=== PATIENT | male | born 1965 | race Hispanic/Latino ===

== ENCOUNTER 2017-06-13 15:23 | Inpatient (IN) | payer MEDICARE, OTHER ==
--- NOTE | 2017-06-13 18:21 | RAD ---
HISTORY: tachycardia, psych COMPARISON: No prior. FINDINGS: LUNGS: The lungs are well inflated and clear. PLEURA: No significant pleural effusion identified, no pneumothorax apparent. CARDIOVASCULAR: Normal. OSSEOUS STRUCTURES: No significant abnormalities. VISUALIZED UPPER ABDOMEN: Normal. OTHER FINDINGS: None. IMPRESSION: No active pulmonary disease.
--- NOTE | 2017-06-13 18:22 | ED PDOC ---
Arrival/HPI - General Historian: Patient <Madelin Pena PA-C - Last Filed: 06/13/17 18:43> <Marco A Tejeda - Last Filed: 06/13/17 22:23> <TilaTerri - Last Filed: 06/15/17 07:42> - General Chief Complaint: Psychiatric Evaluation Time Seen by Provider: 06/13/17 16:40 - History of Present Illness Narrative History of Present Illness (Text): 06/13/17 18:19 Patient w/ past medical history of schizophrenia, presents for psychiatric evaluation, patient states that he does not know why he was in the hospital, states that he had an argument with his brother and his brother called the doctor of dental surgery on him and brought him to the emergency room to be evaluated. Otherwise the patient has no other complaints. Other psychiatric symptoms: (-) hallucinations , (-) suicidal ideation, (-) homicidal ideation. Otherwise: (-) trauma, (-) fever, (-) headache, (-) cough, (-) URI, (-) CP, (-) dyspnea, (-) vomiting, (-) abdominal pain, (-) diarrhea, (-) urinary symptoms, (-) leg pain / swelling. ( Madelin Pena PA-C) Past Medical History - Provider Review Nursing Documentation Reviewed: Yes - Cardiac Hx Cardiac Disorders: No - Pulmonary Hx Respiratory Disorders: No - Neurological Hx Neurological Disorder: No - HEENT Hx HEENT Disorder: No - Renal Hx Renal Disorder: No - Endocrine/Metabolic Hx Endocrine Disorders: No - Hematological/Oncological Hx Blood Disorders: No - Musculoskeletal/Rheumatological Hx Musculoskeletal Disorders: No - Gastrointestinal Hx Gastrointestinal Disorders: No - Genitourinary/Gynecological Hx Genitourinary Disorders: No - Psychiatric Hx Psychophysiologic Disorder: Yes Hx Schizophrenia: Yes Hx Substance Use: No - Surgical History Hx Appendectomy: Yes <Madelin Pena PA-C - Last Filed: 06/13/17 18:43> Family/Social History - Physician Review Nursing Documentation Reviewed: Yes Family/Social History: No Known Family HX Smoking Status: Light Smoker < 10 Cigarettes Daily Hx Alcohol Use: No Hx Substance Use: No <Madelin Pena PA-C - Last Filed: 06/13/17 18:43> Allergies/Home Meds <Madelin Pena PA-C - Last Filed: 06/13/17 18:43> <Marco A Tejeda - Last Filed: 06/13/17 22:23> <Terri Adorno - Last Filed: 06/15/17 07:42> Allergies/Adverse Reactions: Allergies No Known Allergies Allergy (Verified 06/13/17 15:55) Home Medications: Home Meds Medication Instructions Recorded Confirmed Escitalopram Oxalate [Lexapro] 15 mg PO BID 06/13/17 06/14/17 Olanzapine [Zyprexa] 20 mg PO DAILY 06/13/17 06/14/17 buPROPion SR [Wellbutrin SR 150 MG] 150 mg PO DAILY 06/13/17 06/14/17 clonazePAM [Klonopin] 1 mg PO BID 06/13/17 06/14/17 Review of Systems - Review of Systems Constitutional: Normal. absent: Fatigue, Weight Change, Fevers, Night Sweats Respiratory: Normal. absent: SOB, Cough, Sputum, Wheezing Cardiovascular: Normal. absent: Chest Pain, Palpitations, Edema Gastrointestinal: Normal. absent: Abdominal Pain, Stool Changes, Appetite Changes Musculoskeletal: Normal. absent: Arthralgias, Back Pain, Neck Pain Skin: Normal. absent: Rash, Pruritis, Skin Lesions Neurological: Normal. absent: Headache, Dizziness, Focal Weakness Psychiatric: Normal, Anxiety. absent: Depression, Suicidal Ideation <Madelin Pena PA-C - Last Filed: 06/13/17 18:43> Physical Exam <Madelin Pena PA-C - Last Filed: 06/13/17 18:43> <Marco A Tejeda - Last Filed: 06/13/17 22:23> <Terri Adorno - Last Filed: 06/15/17 07:42> - Physical Exam Narrative Physical Exam (Text): 06/13/17 18:23 GENERAL APPEARANCE: Patient is awake, alert, oriented x 3, in no acute distress. SKIN: Warm, dry; (-) cyanosis. HEAD: (-) scalp swelling, (-) scalp tenderness. EYES: (-) conjunctival pallor, (-) scleral icterus, (-) nystagmus. ENMT: Mucous membranes moist. Airway patent: (-) stridor. NECK: (-) tenderness, (-) stiffness, (-) lymphadenopathy. CHEST AND RESPIRATORY: (+) tachycardic, (-) rales, (-) rhonchi, (-) wheezes; breath sounds equal. ABDOMEN: Soft, (-) distention, (-) tenderness, (-) guarding. NEURO AND PSYCH: Mental status as above. Affect: normal. Memory: Intact. 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 Strength and DTRs symmetric. (Madelin Pena PA-C) Vital Signs Temp Pulse Resp BP Pulse Ox 06/13/17 21:05 95 H 17 146/66 100 06/13/17 20:14 100 H 17 118/74 98 06/13/17 18:46 112 H 18 133/84 98 06/13/17 15:49 97.7 F 125 H 20 142/83 100 Medical Decision Making <Madelin Pena PA-C - Last Filed: 06/13/17 18:43> <Marco A Tejeda - Last Filed: 06/13/17 22:23> <Terri Adorno - Last Filed: 06/15/17 07:42> ED Course and Treatment: 06/13/17 18:23 51 yo M w/ past medical history of schizophrenia, presents for psychiatric evaluation, patient states that he does not know why he was in the hospital, states that he had an argument with his brother and his brother called the doctor of dental surgery on him and brought him to the emergency room to be evaluated. Plan: -- Labs -- Etoh / drug screen -- Urinalysis -- EKG -- CXR -- PES evaluation -- Reassess and disposition CXR : NAD, as read by GHULAM EKG: ST at 121 bpm, (-) acute ST changes, as read by GHULAM. Repeat VS P 118 T 99.7 (rectal). On reevaluation, patient is resting in bed comfortably in no acute distress. Patient continues to deny any actual physical or psychiatric complaints at this time. Labs still pending. Patient placed on a architecture internship. Patient seen and evaluated by Dr. Adorno. (Madelin Pena PA-C) 06/13/17 19:17 Patient evaluated by me. History reviewed. He denies suicidal or homicidal ideation. He denies any chest pain or shortness of breath. Denies lightheadedness or dizziness. Denies fever. Denies vomiting or diarrhea. He reports history of thryoid disease and hypertension. Current exam not consistent with thyroid emergency. IV fluids ordered as patient tachycardic. No prior EKG for comparison. He admamantly denies chest pain or nausea or any dyspnea or symptoms with exertion. No calf pain or swelling. Currently no hallucinations noted. Labs pending. Case endorsed to Dr. Tejeda for further monitoring, evaluation of labs and symptoms and disposition. (Terri Adorno) - Lab Interpretations Lab Results: 06/13/17 18:00 06/13/17 18:00 Lab Results 06/13/17 19:50: Urine Opiates Screen Negative, Urine Methadone Screen Negative, Ur Barbiturates Screen Negative, Ur Phencyclidine Scrn Negative, Ur Amphetamines Screen Negative, U Benzodiazepines Scrn Negative, U Oth Cocaine Metabols Negative, U Cannabinoids Screen Negative 06/13/17 19:50: Urine Color Yellow, Urine Appearance Clear, Urine pH 5.5, Ur Specific [place] >= 1.030, Urine Protein Trace H, Urine Glucose (UA) Negative, Urine Ketones 40 H, Urine Blood Trace-lysed H, Urine Nitrate Negative, Urine Bilirubin Small H, Urine Urobilinogen 0.2, Ur Leukocyte Esterase Negative, Urine RBC 1 - 3, Urine WBC 5 - 10, Ur Epithelial Cells 0 - 2, Urine Bacteria Few 06/13/17 18:00: Thyroxine (T4) 5.2 L, TSH 3rd Generation 0.93 06/13/17 18:00: Magnesium 2.2, Lactate Dehydrogenase 398, Total Creatine Kinase 85, Troponin I < 0.01 06/13/17 18:00: Alcohol, Quantitative < 10 06/13/17 18:00: Sodium 143, Potassium 3.5 L, Chloride 112 H, Carbon Dioxide 15 L , Anion Gap 20, BUN 24 H, Creatinine 1.4, Est GFR ( Amer) > 60, Est GFR ( Non-Af Amer) 54, Random Glucose 103, Calcium 9.2, Total Bilirubin 0.3, AST 18, ALT 21, Alkaline Phosphatase 76, Total Protein 7.3, Albumin 4.0, Globulin 3.2, Albumin/Globulin Ratio 1.3 06/13/17 18:00: WBC 12.0 H, RBC 4.22, Hgb 13.2 L, Hct 38.0 L, MCV 90.0, MCH 31.3 , MCHC 34.7, RDW 14.5, Plt Count 309, MPV 9.5, Gran % 79.5 H, Lymph % (Auto) 12.4 L, [place] % (Auto) 7.5 H, Eos % (Auto) 0.4 L, Baso % (Auto) 0.2, Gran # 9.51 H, Lymph # 1.5, [place] # 0.9 H, Eos # 0.1, Baso # 0.02 - RAD Interpretation Radiology Orders: 06/13/17 16:47 CHEST PORTABLE [RAD] Stat - Medication Orders Current Medication Orders: Acetaminophen (Tylenol 325mg Tab) 650 mg PO Q4H PRN PRN Reason: Pain, Mild (1-3) Al Hydrox/Mg Hydrox/Simethicone (Maalox Plus 30 Ml) 30 ml PO DAILY PRN PRN Reason: Upset Stomach Buspirone HCl (Buspar) 15 mg PO BID TRACY PRN Reason: Protocol Last Admin: 06/14/17 16:29 Dose: 15 mg Re-Assess: Reassess Psych Meds Document 06/14/17 17:29 RFE (Rec: 06/14/17 18:33 RFE [id number]) Reassess Psych Med Effective Clonazepam (Klonopin) 1 mg PO TID TRACY PRN Reason: Protocol Last Admin: 06/14/17 19:14 Dose: 1 mg Re-Assess: Reassess Psych Meds Document 06/14/17 20:14 DCP (Rec: 06/14/17 21:07 DCP [id number]) Reassess Psych Med Effective Escitalopram Oxalate (Lexapro) 20 mg PO DAILY [facility] Last Admin: 06/14/17 09:16 Dose: 20 mg Levothyroxine Sodium (Synthroid) 175 mcg PO 0600 TRACY Last Admin: 06/15/17 07:02 Dose: 175 mcg Magnesium Hydroxide (Milk Of Magnesia) 30 ml PO DAILY PRN PRN Reason: Constipation Nicotine (Nicoderm Cq) 1 patch TD DAILY [facility] Last Admin: 06/14/17 08:00 Dose: 1 patch Re-Assess: MAR Transdermal Patch Removal Document 06/14/17 20:00 DCP (Rec: 06/14/17 21:07 DCP [id number]) Transdermal Patch Removal Removal of Transdermal Patch done? Yes Olanzapine (Zyprexa) 10 mg PO DAILY TRACY PRN Reason: Protocol Olanzapine (Zyprexa) 20 mg PO HS TRACY PRN Reason: Protocol Last Admin: 06/14/17 21:24 Dose: 20 mg Re-Assess: Reassess Psych Meds Document 06/14/17 22:24 DCP (Rec: 06/14/17 23:40 DCP [id number]) Reassess Psych Med Effective Ziprasidone (Geodon Inj) 20 mg IM Q6H PRN; Protocol PRN Reason: Agitation Zolpidem Tartrate (Ambien) 5 mg PO HS PRN; Protocol PRN Reason: Insomnia Discontinued Medications Bupropion HCl (Wellbutrin Sr 150 Mg) 150 mg PO DAILY TRACY Last Admin: 06/14/17 09:16 Dose: 150 mg Clonazepam (Klonopin) 1 mg PO BID TRACY PRN Reason: Protocol Last Admin: 06/14/17 09:15 Dose: 1 mg Re-Assess: Reassess Psych Meds Document 06/14/17 10:15 RFE (Rec: 06/14/17 11:21 RFE [id number]) Reassess Psych Med Effective Sodium Chloride (Sodium Chloride 0.9%) 1,000 mls @ 1,000 mls/hr IV .Q1H STA Stop: 06/13/17 19:58 Last Admin: 06/13/17 19:25 Dose: 1,000 mls/hr Olanzapine (Zyprexa) 20 mg PO DAILY TRACY PRN Reason: Protocol Last Admin: 06/14/17 09:15 Dose: 20 mg Re-Assess: Reassess Psych Meds Document 06/14/17 10:15 RFE (Rec: 06/14/17 11:21 RFE [id number]) Reassess Psych Med Effective Potassium Chloride (K-Dur 20 Meq Er Tab) 40 meq PO STAT STA Stop: 06/13/17 22:03 Last Admin: 06/13/17 22:20 Dose: 40 meq - PA / [employer] / Resident Statement / has reviewed & agrees with the documentation as recorded. <Madelin Pena PA-C - Last Filed: 06/13/17 18:43> Disposition/Present on Arrival - Present on Arrival Any Indicators Present on Arrival: No History of DVT/PE: No History of Uncontrolled Diabetes: No Urinary Catheter: No History of Decub. Ulcer: No History Surgical Site Infection Following: None - Disposition Have Diagnosis and Disposition been Completed?: Yes <Madelin Pena PA-C - Last Filed: 06/13/17 18:43> - Disposition Have Diagnosis and Disposition been Completed?: Yes Disposition Time: 22:00 <Marco A Tejeda - Last Filed: 06/13/17 22:23> <Terri Adorno - Last Filed: 06/15/17 07:42> - Disposition Diagnosis: Schizophrenia Disposition: HOSPITALIZED Patient Problems: Current Active Problems Problem Status Onset Schizophrenia Acute Condition: STABLE
[2017-06-13 18:25] LABS: ALB/GLOB RATIO 1.3 (1.1-1.8); ALKALINE PHOSPHATASE 76 U/L (38-133); ALT/SGPT 21 U/L (7-56); AST/SGOT 18 U/L (15-59); BILIRUBIN,TOTAL 0.3 mg/dL (0.2-1.3); BLOOD UREA NITROGEN 24 mg/dL (7-21); CALCIUM 9.2 mg/dL (8.4-10.5); CARBON DIOXIDE 15 mmol/L (21-33); CHLORIDE 112 mmol/L (98-107); GFR AFRICAN-AMERICAN > 60; GLUCOSE,RANDOM 103 mg/dL (70-110); POTASSIUM 3.5 mmol/L (3.6-5.0); SODIUM 143 mmol/L (132-148); TOTAL PROTEIN 7.3 g/dL (5.8-8.3)
[2017-06-13 18:30] LABS: BASO # 0.02 K/mm3 (0.0-2.0); BASO % 0.2 % (0.0-3.0); EOS # 0.1 (0.0-0.7); EOS % 0.4 % (1.5-5.0); GRAN # 9.51 (1.4-6.5); GRAN % 79.5 % (50.0-68.0); LYMPH # 1.5 (1.2-3.4); LYMPH % 12.4 % (22.0-35.0); MEAN CORPUSCULAR HEMOGLOBIN 31.3 pg (25.0-35.0); MEAN CORPUSCULAR HGB CONC 34.7 g/dl (31.0-37.0); MEAN PLATELET VOLUME 9.5 fl (7.0-11.0); MONO # 0.9 (0.1-0.6); MONO % 7.5 % (1.0-6.0); RED CELL DISTRIBUTION WIDTH 14.5 % (11.5-14.5)
[2017-06-13 18:57] LABS: MAGNESIUM 2.2 mg/dL (1.7-2.2)
[2017-06-13] MEDS ORDERED: Sodium Chloride 0.9% 1,000 ML IV STA (18:59)
[2017-06-13 19:29] LABS: TROPONIN I < 0.01 ng/mL
[2017-06-13 20:02] LABS: T4 5.2 ug/dL (5.5-11.0)
[2017-06-13 20:04] LABS: PH,URINE 5.5 (4.7-8.0); URINE BILIRUBIN SMALL (NEGATIVE); URINE BLOOD TRACE-LYSED (NEGATIVE); URINE GLUCOSE (UA) NEGATIVE (NEGATIVE); URINE KETONE 40 mg/dL (NEGATIVE); URINE LEUKOCYTE ESTERASE NEGATIVE Leu/uL (NEGATIVE); URINE PROTEIN TRACE mg/dL (<30 mg/dL); URINE UROBILINOGEN 0.2 E.U./dL (<1 E.U./dL)
[2017-06-13 20:07] LABS: URINE APPEARANCE CLEAR (CLEAR); URINE COLOR YELLOW (YELLOW)
[2017-06-13 20:15] LABS: THYROID STIMULATING HORMONE 0.93 mIU/mL (0.46-4.68)
[2017-06-13 20:16] LABS: URINE BACTERIA FEW (NEG); URINE EPITHELIAL CELLS 0 - 2 /hpf (0-5)
[2017-06-13] MEDS ORDERED: Potassium Chloride 20 mEq ER Tab PO STA (22:02)
--- NOTE | 2017-06-13 22:25 | ED PDOC ---
Physical Exam - Physical Exam Narrative Physical Exam (Text): 06/13/17 22:24 pt seen by [facility] for admission to [facility] Vital Signs Temp Pulse Resp BP Pulse Ox 06/13/17 21:05 95 H 17 146/66 100 06/13/17 20:14 100 H 17 118/74 98 06/13/17 18:46 112 H 18 133/84 98 06/13/17 15:49 97.7 F 125 H 20 142/83 100 Medical Decision Making - Lab Interpretations Lab Results: 06/13/17 18:00 06/13/17 18:00 Lab Results 06/13/17 19:50: Urine Opiates Screen Negative, Urine Methadone Screen Negative, Ur Barbiturates Screen Negative, Ur Phencyclidine Scrn Negative, Ur Amphetamines Screen Negative, U Benzodiazepines Scrn Negative, U Oth Cocaine Metabols Negative, U Cannabinoids Screen Negative 06/13/17 19:50: Urine Color Yellow, Urine Appearance Clear, Urine pH 5.5, Ur Specific [place] >= 1.030, Urine Protein Trace H, Urine Glucose (UA) Negative, Urine Ketones 40 H, Urine Blood Trace-lysed H, Urine Nitrate Negative, Urine Bilirubin Small H, Urine Urobilinogen 0.2, Ur Leukocyte Esterase Negative, Urine RBC 1 - 3, Urine WBC 5 - 10, Ur Epithelial Cells 0 - 2, Urine Bacteria Few 06/13/17 18:00: Thyroxine (T4) 5.2 L, TSH 3rd Generation 0.93 06/13/17 18:00: Magnesium 2.2, Lactate Dehydrogenase 398, Total Creatine Kinase 85, Troponin I < 0.01 06/13/17 18:00: Alcohol, Quantitative < 10 06/13/17 18:00: Sodium 143, Potassium 3.5 L, Chloride 112 H, Carbon Dioxide 15 L , Anion Gap 20, BUN 24 H, Creatinine 1.4, Est GFR ( Amer) > 60, Est GFR ( Non-Af Amer) 54, Random Glucose 103, Calcium 9.2, Total Bilirubin 0.3, AST 18, ALT 21, Alkaline Phosphatase 76, Total Protein 7.3, Albumin 4.0, Globulin 3.2, Albumin/Globulin Ratio 1.3 06/13/17 18:00: WBC 12.0 H, RBC 4.22, Hgb 13.2 L, Hct 38.0 L, MCV 90.0, MCH 31.3 , MCHC 34.7, RDW 14.5, Plt Count 309, MPV 9.5, Gran % 79.5 H, Lymph % (Auto) 12.4 L, [place] % (Auto) 7.5 H, Eos % (Auto) 0.4 L, Baso % (Auto) 0.2, Gran # 9.51 H, Lymph # 1.5, [place] # 0.9 H, Eos # 0.1, Baso # 0.02 - RAD Interpretation Radiology Orders: 06/13/17 16:47 CHEST PORTABLE [RAD] Stat - Medication Orders Current Medication Orders: Discontinued Medications Sodium Chloride (Sodium Chloride 0.9%) 1,000 mls @ 1,000 mls/hr IV .Q1H STA Stop: 06/13/17 19:58 Last Admin: 06/13/17 19:25 Dose: 1,000 mls/hr Potassium Chloride (K-Dur 20 Meq Er Tab) 40 meq PO STAT STA Stop: 06/13/17 22:03 Last Admin: 06/13/17 22:20 Dose: 40 meq Disposition/Present on Arrival - Present on Arrival Any Indicators Present on Arrival: No History of DVT/PE: No History of Uncontrolled Diabetes: No Urinary Catheter: No History of Decub. Ulcer: No History Surgical Site Infection Following: None - Disposition Have Diagnosis and Disposition been Completed?: Yes Diagnosis: Schizophrenia Disposition: HOSPITALIZED Disposition Time: 22:00 Patient Problems: Current Active Problems Problem Status Onset Schizophrenia Acute Condition: STABLE
[2017-06-13] MEDS ORDERED: Alum-Mag Hydrox-Simethicone Susp (30 mL) PO PRN (23:24)
[2017-06-13] MEDS ORDERED: Magnesium Hydroxide Susp 30 ml UD PO PRN (23:24)
[2017-06-14 00:49] VITALS: RESP 20
--- NOTE | 2017-06-14 01:23 | PCM.BM ---
<Lucy Rai C - Last Filed: 06/14/17 01:20> Treatment Plan Problems - Problems identified on initial assessmt AGITATION Date Initiated: 06/13/17 Time Initiated: 23:00 Assessment reference: NA Status: Active HEARING VOICES Date Initiated: 06/13/17 Time Initiated: 23:00 Assessment reference: NA Status: Active Treatment assets and liabiliti Patient Assests: cooperative, motivated, self-reliant, ADL independent, good support system, negotiates basic needs, cognitively intact Patient Liabilities: financial problems, medical problems - Milieu Protocol Maintain good personal hygiene: every other day Encourage regular showers, every shift Remind patient to perform daily oral care, every shift Assist patient to perform ADL's Maintain personal safety: every shift Educate patient to report safety concerns to staff, every shift Monitor environment for contraband/sharps Medication safety: Monitor for expected outcome, potential side effects: every shift, Assess barriers to learning: every shift, Assess readiness for medication education: every shift Family Contact Family involvement: Family/SO is involved Family contact: Patient agrees to contact Discharge/Continuing Care - Education Needs Education Needs: Patient Medication, Patient Diagnosis/Disease Process, Patient Coping Skills, Patient Anger Management skills, Patient Community resources, Patient Activities of Daily Living, Patient Nutrition, Patient Health Practices/ Safety, Patient Personal Hygiene/Grooming, Patient Aftercare Safety Plan - Discharge Discharge Criteria: Tolerates medication w/o severe side effects, Free of Suicidal thoughts, Free of Homicidal thoughts, Free of paranoid thoughts, Free of agitation, Normal sleep pattern, Ability to care for self <Cassandra Gan A - Last Filed: 06/14/17 09:13> - Diagnosis (1) Schizophrenia Status: Acute Interventions: 06/14/17 09:13 Psychoeducation/psychotherapy Psychopharmacology/adjustment of medications as needed/ monitoring possible side effects Evaluate pt on daily basis Compliance with medications and follow up appointments Long acting medication if pt is noncompliant with pill form Suicide and homicide risk assessment and prevention, coping strategies, safety plan Relapse prevention Reduction of symptoms Improve functional status Possible assertive community treatment Cognitive behavioral therapy Family intervention Possible social skill training as outpatient <Shakira Mccarty Y - Last Filed: 06/17/17 12:19>
[2017-06-14 07:05] VITALS: O2SAT 97
[2017-06-14 07:09] LABS: CHOLESTEROL 114 mg/dL (130-200); GLUCOSE,FASTING 84 mg/dL (65-110)
[2017-06-14] MEDS ORDERED: buPROPion SR 150 MG TABLET PO SCH (08:00)
--- NOTE | 2017-06-14 10:29 | PCM.PSYCH ---
Initial Psychiatric Evaluation - Initial Psychiatric Evaluation Type of Admission: Voluntary Legal Status: Capacity (patient has capacity to sign consent for treatment) Chief Complaint (in patient's own words): "I don't know why I'm here, I was not aggressive; i'm not violent person" Patient's Reaction to Hospitalization: patient was admitted to the psychiatric inpatient unit for possible worsening of psychotic symptoms, possible aggression, disorganized thoughts and behavior. Patient signed consent for treatment, needs further observation and stabilization History of Present Illness and Precipitating Events: shortly patient is 51 years old male, with h/o schizophrenia, h/o psychiatric admissions in the past, most recent was 20 years ago, patient lives in [place] with his family including his brother, mother. Patient brother called 911 because patient was verbally aggressive towards the family as per ED report, patient denied. Patient currently under local psychiatrist care Dr.Paul Dias, pt needs further evaluation and stabilization, observation. as per ED report pt had verbal aggression and has not been eating or sleeping as per pt's brother report. patient was seen today at the treatment team meeting room, poor personal hygiene , poor dental hygiene, good ADLs, thin build/almost malnourished. pt presented to be oddly related, seems to be mildly disorganized, reported to hear female voice, "it does not bother me", pt denied command type hallucinations, denied paranoid ideation. pt denied that he was aggressive, reported being compliant with meds which prescribed by local psychiatrist , pt seems to know med list. this life underwriter called [facility] levothyroxine 175 g daily filled in April 17 3 month supply was provided Klonopin 1 mg 3 times a day prescribed by 1 month supply was given field in June 13 Olanzapine 30mg po daily hs same prescriber wellbutrin 150mg daily XL Lexapro 20mg po daily Buspar 15mg bid all meds will be resumed, but wellbutrin will be d/c (increase risk of psychosis ) pt denied being depressed, denied thoughts of harming self or others. pt reported smoking a pack a day, nicotine patch provided, counseling done. pt denied ay substance abuse, denied alcohol consumption. past psych h/o: multiple admisisons in the past, most recent was 20years ago, denied suicidal attempts in the past. family h/o: pt denied, but as per ED report, mother has schizophrenia. Medical h/o: hypothyroidism, but pt said that he is healthy. social h/o: does not work, lives with brother and mother. 06/13/17 18:00 06/13/17 18:00 Lab Results 06/14/17 06:40: Fasting Glucose 84, Triglycerides 66, Cholesterol 114 L, LDL Cholesterol Direct 71, HDL Cholesterol 32 06/13/17 19:50: Urine Opiates Screen Negative, Urine Methadone Screen Negative, Ur Barbiturates Screen Negative, Ur Phencyclidine Scrn Negative, Ur Amphetamines Screen Negative, U Benzodiazepines Scrn Negative, U Oth Cocaine Metabols Negative, U Cannabinoids Screen Negative 06/13/17 19:50: Urine Color Yellow, Urine Appearance Clear, Urine pH 5.5, Ur Specific [place] >= 1.030, Urine Protein Trace H, Urine Glucose (UA) Negative, Urine Ketones 40 H, Urine Blood Trace-lysed H, Urine Nitrate Negative, Urine Bilirubin Small H, Urine Urobilinogen 0.2, Ur Leukocyte Esterase Negative, Urine RBC 1 - 3, Urine WBC 5 - 10, Ur Epithelial Cells 0 - 2, Urine Bacteria Few 06/13/17 18:00: Thyroxine (T4) 5.2 L, TSH 3rd Generation 0.93 06/13/17 18:00: Magnesium 2.2, Lactate Dehydrogenase 398, Total Creatine Kinase 85, Troponin I < 0.01 06/13/17 18:00: Alcohol, Quantitative < 10 06/13/17 18:00: Sodium 143, Potassium 3.5 L, Chloride 112 H, Carbon Dioxide 15 L , Anion Gap 20, BUN 24 H, Creatinine 1.4, Est GFR ( Amer) > 60, Est GFR ( Non-Af Amer) 54, Random Glucose 103, Calcium 9.2, Total Bilirubin 0.3, AST 18, ALT 21, Alkaline Phosphatase 76, Total Protein 7.3, Albumin 4.0, Globulin 3.2, Albumin/Globulin Ratio 1.3 06/13/17 18:00: WBC 12.0 H, RBC 4.22, Hgb 13.2 L, Hct 38.0 L, MCV 90.0, MCH 31.3 , MCHC 34.7, RDW 14.5, Plt Count 309, MPV 9.5, Gran % 79.5 H, Lymph % (Auto) 12.4 L, [place] % (Auto) 7.5 H, Eos % (Auto) 0.4 L, Baso % (Auto) 0.2, Gran # 9.51 H, Lymph # 1.5, [place] # 0.9 H, Eos # 0.1, Baso # 0.02 Vital Signs Temp Pulse Resp BP Pulse Ox 06/14/17 07:00 97.3 F L 88 20 101/60 97 06/13/17 23:34 20 06/13/17 21:05 95 H 17 146/66 100 06/13/17 20:14 100 H 17 118/74 98 06/13/17 18:46 112 H 18 133/84 98 06/13/17 15:49 97.7 F 125 H 20 142/83 100 Current Medications: Active Medications Generic Name Dose Route Start Last Admin Trade Name Freq PRN Reason Stop Dose Admin Acetaminophen 650 mg 06/13/17 23:24 Tylenol 325mg Tab PO Q4H PRN Pain, Mild (1-3) Al Hydrox/Mg Hydrox/Simethicone 30 ml 06/13/17 23:24 Maalox Plus 30 Ml PO DAILY PRN Upset Stomach Bupropion HCl 150 mg 06/14/17 08:00 06/14/17 09:16 Wellbutrin Sr 150 Mg PO 150 mg DAILY TRACY Administration Clonazepam 1 mg 06/14/17 08:00 06/14/17 09:15 Klonopin PO 1 mg BID TRACY Administration Protocol Escitalopram Oxalate 20 mg 06/14/17 08:00 06/14/17 09:16 Lexapro PO 20 mg DAILY TRACY Administration Magnesium Hydroxide 30 ml 06/13/17 23:24 Milk Of Magnesia PO DAILY PRN Constipation Nicotine 1 patch 06/14/17 08:00 06/14/17 08:00 Nicoderm Cq TD 1 patch DAILY TRACY Administration Olanzapine 20 mg 06/14/17 08:00 06/14/17 09:15 Zyprexa PO 20 mg DAILY TRACY Administration Protocol Ziprasidone 20 mg 06/13/17 23:28 Geodon Inj IM Q6H PRN Agitation Protocol Zolpidem Tartrate 5 mg 06/13/17 23:28 Ambien PO HS PRN Insomnia Protocol Past Psychiatric History - Past Psychiatric History Previous Treatment History: Inpatient Prior Professional Help: see HPI Prior Psychiatric Treatment: see HPI At what hospital: see HPI Duration: see HPI Nature of Treatment: see HPI Explanation of prior treatment: see HPI History of Abuse: denied History of ETOH/Drug Use: see HPI History of Family Illness: see HPI Pertinent Medical Hx (Current Medical&Sleep Prob, Allergies): Allergies Allergy/AdvReac Type Severity Reaction Status Date / Time No Known Allergies Allergy Verified 06/13/17 15:55 Escitalopram Oxalate [Lexapro] 15 mg PO BID 06/13/17 Olanzapine [Zyprexa] 20 mg PO DAILY 06/13/17 buPROPion SR [Wellbutrin SR 150 MG] 150 mg PO DAILY 06/13/17 clonazePAM [Klonopin] 1 mg PO BID 06/13/17 Review of Systems - Review of Systems Systems not reviewed;Unavailable: Acuity of Condition - EENT Eyes: As Per HPI Ears: As Per HPI Nose/Mouth/Throat: As Per HPI - Cardiovascular Cardiovascular: As Per HPI - Respiratory Respiratory: As Per HPI - Gastrointestinal Gastrointestinal: As Per HPI - Genitourinary Genitourinary: As Per HPI - Reproductive: Male Reproductive:Male: As Per HPI - Musculoskeletal Musculoskeletal: As Par HPI - Integumentary Integumentary: As Per HPI - Neurological Neurological: As Per HPI - Psychiatric Psychiatric: As Per HPI - Endocrine Endocrine: As Per HPI - Hematologic/Lymphatic Hematologic: As Per HPI Mental Status Examination - Personal Presentation Personal Presentation: Looks stated age - Affect Affect: Flat - Motor Activity Motor Activity: Psychomotor Retardation - Reliability in Providing Information Reliability in Providing Information: Fair - Speech Speech: Disorganized - Mood Mood: Neutral - Formal Thought Process Formal Thought Process: Hallucinations (I hear female voice, not command though) - Hallucinations/Delusions Hallucinations: Auditory - Obsessions/Compulsions Obsessions: None Compulsions: None - Cognitive Functions Orientation: Person, Place, Situation Sensorium: Alert Attention/Concentration: Easily distracted Abstract Thinking: [place] Estimate of Intelligence: Below average Judgement: Intact, as evidence by: Insight regarding need for hospitalization - Risk Risk: Diminished functioning - Strength & Assets Inventory Strength & Assets Inventory: Family support, Cooperative - Limitations Limitations: Other (severeness of the symptoms) DSM 5 DX - DSM 5 DSM 5 Diagnosis: As per history of schizophrenia - Recommended/Plan of Treatment Treatment Recommendations and Plan of Treatment: milieu, structure, supportive therapy Meds were confirmed by patient's [facility] levothyroxine 175 g daily filled in April 17 3 month supply was provided, will resume Klonopin 1 mg 3 times a day prescribed by 1 month supply was given field in June 13 (two refills left) Olanzapine 30mg po daily hs same prescriber, will be given 10mg am and 20mg hs wellbutrin 150mg daily XL, will be d/c Lexapro 20mg po daily for depressin and anxiety Buspar 15mg bid for anxiety will be continued medical consult QUYNH arndt collaterals from family Projected ELOS: 7days Prognosis: guarded Discharge Plan and Discharge Criteria: Pt will be not depressed or manic, will be more hopeful, will be not psychotic or anxious, will be not having thoughts of harming self or others, will be tolerating medications well, will not have major side effects, will be able to function, will not pose threat to self or others. - Smoking Cessation Smoking Cessation Initiated: Yes
--- NOTE | 2017-06-15 01:35 | CARD ---
APPROVED REPORT EKG Measurement Heart [id number] <Conclusion> Sinus tachycardia Left ventricular hypertrophy with repolarization abnormality Consider infero-lateral ischemia Abnormal ECG
[2017-06-15] MEDS: Levothyroxine 175 MCG TAB PO SCH (07:02)
--- NOTE | 2017-06-15 11:19 | CON ---
DATE: CHIEF COMPLAINTS: Depression and anxiety. HISTORY OF PRESENT ILLNESS: Mr. Garrett Aldrich is a 51-year-old male, my private patient with history of schizophrenia presented with psychiatrist evaluation and the patient states that he does not know why he was in the hospital. States that he had an argument with his brother and his brother called the police on him and brought him to the emergency home for the evaluation, otherwise the patient has no other complaints. No nausea, vomiting, or diarrhea. No hallucination. No suicidal or homicidal ideation. No trauma, no fever, no chills, no cough. The patient has palpitation. Heart is racing, getting anxious. PAST MEDICAL HISTORY: Schizophrenia, hypertension, and appendectomy. FAMILY HISTORY: Father and mother noncontributory. HABITS: Light smoker, less than 10 cigarettes per day. No alcohol. No substance abuse. ALLERGIES: THE PATIENT IS NOT ALLERGIC WITH ANY MEDICATIONS. HOME MEDICATIONS: Lexapro, Zyprexa, Wellbutrin and Klonopin. REVIEW OF SYSTEMS: The patient is seen and examined at the bedside. Looking comfortable. No nausea, vomiting, or diarrhea. No hematuria, no hematochezia. No swelling of the legs. No chest pain. No palpitation. No headache. No dizziness. PHYSICAL EXAMINATION: VITAL SIGNS: Temperature 97.8, pulse 87, blood pressure 100/66, and respiratory rate 20. HEENT: Head is normocephalic and atraumatic. Eyes; PERRLA. Extraocular muscles intact. Conjunctivae clear. Nose is patent. Mucous membranes moist. NECK: Supple. No carotid bruits. No JVD or thyromegaly. CHEST: Bilaterally symmetrical. HEART: S1 and S2 positive. LUNGS: Clear to auscultation. ABDOMEN: Soft. Bowel sounds present. No organomegaly. EXTREMITIES: No edema. No cyanosis. NEUROLOGIC: The patient is awake and alert. Moving all 4 extremities. No focal deficits. MEDICATIONS: Ambien, BuSpar, Geodon, Klonopin, Lexapro, Maalox, milk of magnesia, nicotine patch, Synthroid, Tylenol, and Zyprexa. LABORATORY DATA: White blood cell 12.0, hemoglobin 13.2, hematocrit 38.0, and platelets 309. Sodium 143, potassium 3.5, BUN 24, creatinine 1.4. TSH 0.96. ASSESSMENT AND PLAN: Mr. Garrett Aldrich is a 51 years old male with hypokalemia replaced, hyperchloremia, increased BUN, leukocytosis, anemia, proteinuria, ketonuria, and hematuria. Drug screening is negative. RPR negative. He was admitted to the Psychiatry Department; history of hypertension and hypothyroidism. We will continue his psych medications, appreciate his psychiatrist input. GI and DVT prophylaxis. Repeat labs. We will followup. Fawn Garcia MD
--- NOTE | 2017-06-15 11:45 | PCM.PYCHPN ---
Psychiatric Progress Note - Psychiatric Progress Note Patient seen today, length of contact: 30min Patient Chief Complaint: "I am well..." Problems Identified/Issues Discussed: Suicide/ homicide prevention, past psychiatric h/o, current psychiatric symptoms , medical problems, risk/benefits and alternatives of medications, medications compliance, coping strategies, substance abuse h/o, relapse prevention, importance of follow up with psychiatrist and therapist, discharge plan. Medical Problems: h/o hypothyroidism Diagnostic Results: 06/13/17 18:00 06/13/17 18:00 Lab Results 06/14/17 06:40: RPR Nonreactive 06/14/17 06:40: Fasting Glucose 84, Triglycerides 66, Cholesterol 114 L, LDL Cholesterol Direct 71, HDL Cholesterol 32 06/13/17 19:50: Urine Opiates Screen Negative, Urine Methadone Screen Negative, Ur Barbiturates Screen Negative, Ur Phencyclidine Scrn Negative, Ur Amphetamines Screen Negative, U Benzodiazepines Scrn Negative, U Oth Cocaine Metabols Negative, U Cannabinoids Screen Negative 06/13/17 19:50: Urine Color Yellow, Urine Appearance Clear, Urine pH 5.5, Ur Specific [place] >= 1.030, Urine Protein Trace H, Urine Glucose (UA) Negative, Urine Ketones 40 H, Urine Blood Trace-lysed H, Urine Nitrate Negative, Urine Bilirubin Small H, Urine Urobilinogen 0.2, Ur Leukocyte Esterase Negative, Urine RBC 1 - 3, Urine WBC 5 - 10, Ur Epithelial Cells 0 - 2, Urine Bacteria Few 06/13/17 18:00: Thyroxine (T4) 5.2 L, TSH 3rd Generation 0.93 06/13/17 18:00: Magnesium 2.2, Lactate Dehydrogenase 398, Total Creatine Kinase 85, Troponin I < 0.01 06/13/17 18:00: Alcohol, Quantitative < 10 06/13/17 18:00: Sodium 143, Potassium 3.5 L, Chloride 112 H, Carbon Dioxide 15 L , Anion Gap 20, BUN 24 H, Creatinine 1.4, Est GFR ( Amer) > 60, Est GFR ( Non-Af Amer) 54, Random Glucose 103, Calcium 9.2, Total Bilirubin 0.3, AST 18, ALT 21, Alkaline Phosphatase 76, Total Protein 7.3, Albumin 4.0, Globulin 3.2, Albumin/Globulin Ratio 1.3 06/13/17 18:00: WBC 12.0 H, RBC 4.22, Hgb 13.2 L, Hct 38.0 L, MCV 90.0, MCH 31.3 , MCHC 34.7, RDW 14.5, Plt Count 309, MPV 9.5, Gran % 79.5 H, Lymph % (Auto) 12.4 L, [place] % (Auto) 7.5 H, Eos % (Auto) 0.4 L, Baso % (Auto) 0.2, Gran # 9.51 H, Lymph # 1.5, [place] # 0.9 H, Eos # 0.1, Baso # 0.02 Vital Signs Temp Pulse Resp BP Pulse Ox 06/14/17 16:46 87 100/66 06/14/17 07:00 97.3 F L 88 20 101/60 97 06/13/17 23:34 20 06/13/17 21:05 95 H 17 146/66 100 06/13/17 20:14 100 H 17 118/74 98 06/13/17 18:46 112 H 18 133/84 98 06/13/17 15:49 97.7 F 125 H 20 142/83 100 DSM 5 Symptoms Update: shortly patient is 51 years old male, with h/o schizophrenia, h/o psychiatric admissions in the past, most recent was 20 years ago, patient lives in [place] with his family including his brother, mother. Patient brother called 911 because patient was verbally aggressive towards the family as per ED report, patient denied. Patient currently under local psychiatrist care Dr.Paul Dias, pt needs further evaluation and stabilization, observation. as per ED report pt had verbal aggression and has not been eating or sleeping as per pt's brother report. patient was seen today in his room, poor personal hygiene, poor dental hygiene, good ADLs, pt staid in bed, said that he is doing "just fine", pt is oddly related, seems to be mildly disorganized, reported to hear female voice, "it does not bother me", pt denied command type hallucinations, denied paranoid ideation. pt was visited by his brother yesterday "look he gave me his watch", pt reported visitation was good. as per RN report pt is calm, withdrawn, no major behavioral issues, med compliance is good. pt tolerates changes with meds well, no side effects observed or reported, AIMS 0, no EPS. DSM 5 Diagnosis: As per history schizophrenia Medication Change: Yes (wellbutrin was d/c yesterday) Medical Record Reviewed: Yes Consults ordered or reviewed: medical consult was called, appreciated Mental Status Examination - Cognitive Function Orientation: Person, Place, Situation Memory: Impaired Attention: Poor Concentration: Poor Association: Loose Fund of Knowledge: Poor - Mood Mood: Neutral - Affect Affect: Flat - Formal Thought Process Formal Thought Process: Hallucinations (I hear female voice, not command though) - Suicidal Ideation Suicidal Ideation: No - Homicidal Ideation Homicidal Ideation: No Goal/Treatment Plan - Goal/Treatment Plan Need for Continued Stay: Remain at risks for inpatient hospitalization, Severe depression anxiety, Discharge may exacerbated symptoms, Severe functional impairment Progress Toward Problem(s) and Goals/Treatment Plan: milieu, structure, supportive therapy Meds were confirmed by patient's [facility] pharmacy levothyroxine 175 g daily filled in April 17 3 month supply was provided, will resume Klonopin 1 mg 3 times a day prescribed by 1 month supply was given field in June 13 (two refills left) Olanzapine 30mg po daily hs same prescriber, will be given 10mg am and 20mg hs wellbutrin d/c Lexapro 20mg po daily for depression and anxiety Buspar 15mg bid for anxiety will be continued medical consult appreciated QUYNH arndt collaterals from family Estimated Date of D/C: 06/19/17 (will monitor closely)
[2017-06-16] MEDS: Levothyroxine 175 MCG TAB PO SCH (06:38)
--- NOTE | 2017-06-16 10:15 | PN ---
DATE:06/15/2017 SUBJECTIVE: Patient is a 51 years old male. Patient examined on the bedside. Looking comfortable. No nausea, vomiting, or diarrhea. No hematemesis or hematochezia. No swelling of the legs. No chest pain. No palpitation. Brother and mother were on the beside all through length of time discussion done. All questions answered. PHYSICAL EXAMINATION: VITAL SIGNS: Patient is 97.3, pulse 59, blood pressure 101/55, respiratory rate 18. HEENT: Head normocephalic, atraumatic. Eyes: PERRLA. Extraocular muscles intact. Conjunctiva clear. Nose patent. Mucous membrane moist. NECK: Supple. No carotid bruits. No thyromegaly. CHEST: Bilateral symmetrical. HEART: S1 and S2 positive. LUNGS: Clear to auscultation. ABDOMEN: Soft. Bowel sounds present. No organomegaly. EXTREMITIES: No edema. No cyanosis. NEUROLOGIC: Patient is awake, alert. Moving all 4 extremities. No focal deficit. MEDICATIONS: Ambien, BuSpar, Geodon, Klonopin, Lexapro, milk of magnesia, nicotine patch. LABORATORY DATA: We do not have labs today, but I reviewed old labs. ASSESSMENT AND PLAN: Patient is a 51 years old male with history of schizophrenia, hypertension, appendectomy. He is under the care of Dr. Cassandra Gan in the psychiatry department. The patient has hypercholesterolemia, leukocytosis, anemia, proteinuria, ketonuria, hematuria, history of hypothyroidism, hypertension. We will continue pysch medications. Gastrointestinal and deep venous thrombosis prophylaxis. Discussion done with the brother and family. All questions answered. Fawn Garcia MD [email or web address]
--- NOTE | 2017-06-16 16:49 | PCM.PYCHPN ---
Psychiatric Progress Note - Psychiatric Progress Note Patient seen today, length of contact: 30min Patient Chief Complaint: "I never been so angry, I was not in the hospital for the past twenty years" Problems Identified/Issues Discussed: Suicide/ homicide prevention, past psychiatric h/o, current psychiatric symptoms , medical problems, risk/benefits and alternatives of medications, medications compliance, coping strategies, substance abuse h/o, relapse prevention, importance of follow up with psychiatrist and therapist, discharge plan. Medical Problems: h/o hypothyroidism Diagnostic Results: 06/13/17 18:00 06/13/17 18:00 Lab Results 06/14/17 06:40: RPR Nonreactive 06/14/17 06:40: Fasting Glucose 84, Triglycerides 66, Cholesterol 114 L, LDL Cholesterol Direct 71, HDL Cholesterol 32 06/13/17 19:50: Urine Opiates Screen Negative, Urine Methadone Screen Negative, Ur Barbiturates Screen Negative, Ur Phencyclidine Scrn Negative, Ur Amphetamines Screen Negative, U Benzodiazepines Scrn Negative, U Oth Cocaine Metabols Negative, U Cannabinoids Screen Negative 06/13/17 19:50: Urine Color Yellow, Urine Appearance Clear, Urine pH 5.5, Ur Specific [place] >= 1.030, Urine Protein Trace H, Urine Glucose (UA) Negative, Urine Ketones 40 H, Urine Blood Trace-lysed H, Urine Nitrate Negative, Urine Bilirubin Small H, Urine Urobilinogen 0.2, Ur Leukocyte Esterase Negative, Urine RBC 1 - 3, Urine WBC 5 - 10, Ur Epithelial Cells 0 - 2, Urine Bacteria Few 06/13/17 18:00: Thyroxine (T4) 5.2 L, TSH 3rd Generation 0.93 06/13/17 18:00: Magnesium 2.2, Lactate Dehydrogenase 398, Total Creatine Kinase 85, Troponin I < 0.01 06/13/17 18:00: Alcohol, Quantitative < 10 06/13/17 18:00: Sodium 143, Potassium 3.5 L, Chloride 112 H, Carbon Dioxide 15 L , Anion Gap 20, BUN 24 H, Creatinine 1.4, Est GFR ( Amer) > 60, Est GFR ( Non-Af Amer) 54, Random Glucose 103, Calcium 9.2, Total Bilirubin 0.3, AST 18, ALT 21, Alkaline Phosphatase 76, Total Protein 7.3, Albumin 4.0, Globulin 3.2, Albumin/Globulin Ratio 1.3 06/13/17 18:00: WBC 12.0 H, RBC 4.22, Hgb 13.2 L, Hct 38.0 L, MCV 90.0, MCH 31.3 , MCHC 34.7, RDW 14.5, Plt Count 309, MPV 9.5, Gran % 79.5 H, Lymph % (Auto) 12.4 L, [place] % (Auto) 7.5 H, Eos % (Auto) 0.4 L, Baso % (Auto) 0.2, Gran # 9.51 H, Lymph # 1.5, [place] # 0.9 H, Eos # 0.1, Baso # 0.02 Vital Signs Temp Pulse Resp BP Pulse Ox 06/14/17 16:46 87 100/66 06/14/17 07:00 97.3 F L 88 20 101/60 97 06/13/17 23:34 20 06/13/17 21:05 95 H 17 146/66 100 06/13/17 20:14 100 H 17 118/74 98 06/13/17 18:46 112 H 18 133/84 98 06/13/17 15:49 97.7 F 125 H 20 142/83 100 Temp Pulse Resp BP Pulse Ox 98.2 F 73 20 122/72 97 06/16/17 16:26 06/16/17 16:26 06/16/17 06:38 06/16/17 16:26 06/14/17 07:00 DSM 5 Symptoms Update: shortly patient is 51 years old male, with h/o schizophrenia, h/o psychiatric admissions in the past, most recent was 20 years ago, patient lives in [place] with his family including his brother, mother. Patient brother called 911 because patient was verbally aggressive towards the family as per ED report, patient denied. Patient currently under local psychiatrist care Dr.Paul Dias, pt needs further evaluation and stabilization, observation. as per ED report pt had verbal aggression and has not been eating or sleeping as per pt's brother report. patient was seen at the treatment team meeting, poor personal hygiene, poor dental hygiene, good ADLs, pt said that he was very angry and "on edge" prior to come to the hospital, pt gave permission to speak to the brother, SW called and left a message. pt tolerated d/c wellbutrin well. ptseems to be mildly disorganized, reported to hear female voice, "it does not bother me", pt denied command type hallucinations, denied paranoid ideation. as per RN report pt is calm, withdrawn, no major behavioral issues, med compliance is good. pt tolerates changes with meds well, no side effects observed or reported, AIMS 0, no EPS. DSM 5 Diagnosis: As per history schizophrenia Medication Change: No Medical Record Reviewed: Yes Consults ordered or reviewed: medical consult was called, appreciated Mental Status Examination - Cognitive Function Orientation: Person, Place, Situation Memory: Impaired Attention: Poor (some improvement) Concentration: Poor (some improvement) Association: Loose Fund of Knowledge: Poor - Mood Mood: Neutral - Affect Affect: Flat - Formal Thought Process Formal Thought Process: Hallucinations (I hear female voice, not command though) - Suicidal Ideation Suicidal Ideation: No - Homicidal Ideation Homicidal Ideation: No Goal/Treatment Plan - Goal/Treatment Plan Need for Continued Stay: Remain at risks for inpatient hospitalization, Severe depression anxiety, Discharge may exacerbated symptoms, Severe functional impairment Progress Toward Problem(s) and Goals/Treatment Plan: milieu, structure, supportive therapy Meds were confirmed by patient's [facility] levothyroxine 175 g daily filled in April 17 3 month supply was provided, will resume Klonopin 1 mg 3 times a day prescribed by 1 month supply was given field in June 13 (two refills left) Olanzapine 30mg po daily hs same prescriber, will be given 10mg am and 20mg hs wellbutrin d/c Lexapro 20mg po daily for depression and anxiety Buspar 15mg bid for anxiety will be continued medical consult appreciated QUYNH arndt collaterals from family Estimated Date of D/C: 06/19/17 (will monitor closely)
--- NOTE | 2017-06-17 00:57 | PN ---
SUBJECTIVE: The patient is a 51-year-old male. The patient was seen and examined at the bedside. Looking comfortable. His brother used to be my another patient sitting on the bedside also. The patient is feeling better. No nausea, vomiting, diarrhea. No hematuria or hematochezia. No swelling of the legs. No chest pain, no palpitations. No headache, no dizziness. PHYSICAL EXAMINATION: VITAL SIGNS: Temperature 98.2, pulse 76, blood pressure 122/72, and respiratory rate 20. HEENT: Head; normocephalic and atraumatic. Eyes; PERRLA. Extraocular muscles intact. Conjunctivae are clear. Nose is patent. Mucous membrane moist. NECK: Supple. No carotid bruit. No JVD. No thyromegaly. CHEST: Bilaterally symmetrical. HEART: S1, S2 positive. LUNGS: Clear to auscultation. ABDOMEN: Soft. Bowel sounds present. No organomegaly. EXTREMITIES: No edema, no cyanosis. NEUROLOGICAL: The patient is alert. Moving all 4 extremities. No focal deficit. MEDICATIONS: Ambien, BuSpar, Geodon, Klonopin, Lexapro, Maalox, milk of magnesia, Nicoderm, Synthroid, Tylenol, and Zyprexa. LABORATORY DATA: We do not have recent labs today, I reviewed old labs. ASSESSMENT AND PLAN: The patient is a 51-year-old male with leukocytosis, anemia, hypokalemia, hyperchloremia, proteinuria, ketonuria, hematuria, RPR negative, admitted in [facility] for schizophrenia, hypertension, and history of appendectomy. Continue present psych medications. Gastrointestinal and deep venous thrombosis prophylaxis. Discussion done with the patient's brother and family. We will follow up. Fawn Garcia MD
[2017-06-17] MEDS: Levothyroxine 175 MCG TAB PO SCH (06:47)
[2017-06-17 06:52] VITALS: BP 123/78; PULSE 63; TEMP 97.3
--- NOTE | 2017-06-17 15:16 | PCM.PYCHDC ---
Mental Status Examination - Mental Status Examination Orientation: Person, Place, Situation, Time Memory: Intact Mood: Neutral Affect: Constricted (but reactive, mood congruent) Speech: Appropriate Attention: WNL Concentration: WNL Language: Word Retrieval Association: WNL Fund of Knowledge: WNL Formal Thought Process: Hallucinations (chronic hallucinations, noncommand type) Description of patient's judgement and insight: Pt has improved insight into mental and medical illness, pt was compliant with medications and unit rules and regulations, pt was going to groups, was calm, cooperative, socially appropriate, no behavioral incidents, no agitation, no aggression. Psychotic Thoughts and Behaviors: Pt denied v/a/t hallucinations, denied paranoid ideations, pt does not appear to be psychotic, and thought process is goal directed. Suicidal Ideation: No Current Homicidal Ideation?: No Plan: pt adamantly denied thoughts of harming self or others denied intent or plan. Discharge Summary - Discharge Note Reason for Hospitalization: patient was admitted to the psychiatric inpatient unit for possible worsening of psychotic symptoms, possible aggression, disorganized thoughts and behavior. Psychiatric History (includes Medical, Family, Personal Hx): see HPI Laboratory Data: 06/13/17 18:00 06/13/17 18:00 Lab Results 06/14/17 06:40: RPR Nonreactive 06/14/17 06:40: Fasting Glucose 84, Triglycerides 66, Cholesterol 114 L, LDL Cholesterol Direct 71, HDL Cholesterol 32 06/13/17 19:50: Urine Opiates Screen Negative, Urine Methadone Screen Negative, Ur Barbiturates Screen Negative, Ur Phencyclidine Scrn Negative, Ur Amphetamines Screen Negative, U Benzodiazepines Scrn Negative, U Oth Cocaine Metabols Negative, U Cannabinoids Screen Negative 06/13/17 19:50: Urine Color Yellow, Urine Appearance Clear, Urine pH 5.5, Ur Specific [place] >= 1.030, Urine Protein Trace H, Urine Glucose (UA) Negative, Urine Ketones 40 H, Urine Blood Trace-lysed H, Urine Nitrate Negative, Urine Bilirubin Small H, Urine Urobilinogen 0.2, Ur Leukocyte Esterase Negative, Urine RBC 1 - 3, Urine WBC 5 - 10, Ur Epithelial Cells 0 - 2, Urine Bacteria Few 06/13/17 18:00: Thyroxine (T4) 5.2 L, TSH 3rd Generation 0.93 06/13/17 18:00: Magnesium 2.2, Lactate Dehydrogenase 398, Total Creatine Kinase 85, Troponin I < 0.01 06/13/17 18:00: Alcohol, Quantitative < 10 06/13/17 18:00: Sodium 143, Potassium 3.5 L, Chloride 112 H, Carbon Dioxide 15 L , Anion Gap 20, BUN 24 H, Creatinine 1.4, Est GFR ( Amer) > 60, Est GFR ( Non-Af Amer) 54, Random Glucose 103, Calcium 9.2, Total Bilirubin 0.3, AST 18, ALT 21, Alkaline Phosphatase 76, Total Protein 7.3, Albumin 4.0, Globulin 3.2, Albumin/Globulin Ratio 1.3 06/13/17 18:00: WBC 12.0 H, RBC 4.22, Hgb 13.2 L, Hct 38.0 L, MCV 90.0, MCH 31.3 , MCHC 34.7, RDW 14.5, Plt Count 309, MPV 9.5, Gran % 79.5 H, Lymph % (Auto) 12.4 L, [place] % (Auto) 7.5 H, Eos % (Auto) 0.4 L, Baso % (Auto) 0.2, Gran # 9.51 H, Lymph # 1.5, [place] # 0.9 H, Eos # 0.1, Baso # 0.02 Vital Signs Temp Pulse Resp BP Pulse Ox 06/17/17 06:50 97.3 F L 63 20 123/78 06/16/17 16:26 98.2 F 73 122/72 06/16/17 06:38 97.3 F L 58 L 20 103/66 06/15/17 16:42 69 101/65 06/14/17 16:46 87 100/66 06/14/17 07:00 97.3 F L 88 20 101/60 97 06/13/17 23:34 20 06/13/17 21:05 95 H 17 146/66 100 06/13/17 20:14 100 H 17 118/74 98 06/13/17 18:46 112 H 18 133/84 98 06/13/17 15:49 97.7 F 125 H 20 142/83 100 Consultations:: List each consultation separately and include: 1. Reason for request. 2. Findings. 3. Follow-up Consultations: medical consult was called, appreciated see notes for more detailed information Summary of Hospital Course include:: 1. Description of specific treatment plan utilized for patients during their course of treatmen. 2. Summarize the time- course for resolution of acute symptoms and/or regressed behaviors. 3. Describe issues identified and worked on during hospitalization. 4. Describe medication utilized. 5. Describe medical problems identified and treated. 6. Reassessment of suicide risk Summary of Hospital Course: shortly patient is 51 years old male, with h/o schizophrenia, h/o psychiatric admissions in the past, most recent was 20 years ago, patient lives in [place] with his family including his brother, mother. Patient brother called 911 because patient was verbally aggressive towards the family as per ED report, patient denied. Patient currently under local psychiatrist care Dr.Paul Dias, pt needs further evaluation and stabilization, observation. as per ED report pt had verbal aggression and has not been eating or sleeping as per pt's brother report. at the time of initial evaluation pt presented with poor personal hygiene, poor dental hygiene, good ADLs, thin build/almost malnourished. pt presented to be oddly related, seems to be mildly disorganized, reported to hear female voice, "it does not bother me", pt denied command type hallucinations, denied paranoid ideation. pt denied that he was aggressive, reported being compliant with meds which prescribed by local psychiatrist , pt seems to know med list. 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 pt reported smoking a pack a day, nicotine patch provided, counseling done. pt denied ay substance abuse, denied alcohol consumption. past psych h/o: multiple admisisons in the past, most recent was 20years ago, denied suicidal attempts in the past. family h/o: pt denied, but as per ED report, mother has schizophrenia. Medical h/o: hypothyroidism, but pt said that he is healthy. social h/o: does not work, lives with brother and mother. 06/13/17 18:00 06/13/17 18:00 Lab Results 06/14/17 06:40: Fasting Glucose 84, Triglycerides 66, Cholesterol 114 L, LDL Cholesterol Direct 71, HDL Cholesterol 32 06/13/17 19:50: Urine Opiates Screen Negative, Urine Methadone Screen Negative, Ur Barbiturates Screen Negative, Ur Phencyclidine Scrn Negative, Ur Amphetamines Screen Negative, U Benzodiazepines Scrn Negative, U Oth Cocaine Metabols Negative, U Cannabinoids Screen Negative 06/13/17 19:50: Urine Color Yellow, Urine Appearance Clear, Urine pH 5.5, Ur Specific [place] >= 1.030, Urine Protein Trace H, Urine Glucose (UA) Negative, Urine Ketones 40 H, Urine Blood Trace-lysed H, Urine Nitrate Negative, Urine Bilirubin Small H, Urine Urobilinogen 0.2, Ur Leukocyte Esterase Negative, Urine RBC 1 - 3, Urine WBC 5 - 10, Ur Epithelial Cells 0 - 2, Urine Bacteria Few 06/13/17 18:00: Thyroxine (T4) 5.2 L, TSH 3rd Generation 0.93 06/13/17 18:00: Magnesium 2.2, Lactate Dehydrogenase 398, Total Creatine Kinase 85, Troponin I < 0.01 06/13/17 18:00: Alcohol, Quantitative < 10 06/13/17 18:00: Sodium 143, Potassium 3.5 L, Chloride 112 H, Carbon Dioxide 15 L , Anion Gap 20, BUN 24 H, Creatinine 1.4, Est GFR ( Amer) > 60, Est GFR ( Non-Af Amer) 54, Random Glucose 103, Calcium 9.2, Total Bilirubin 0.3, AST 18, ALT 21, Alkaline Phosphatase 76, Total Protein 7.3, Albumin 4.0, Globulin 3.2, Albumin/Globulin Ratio 1.3 06/13/17 18:00: WBC 12.0 H, RBC 4.22, Hgb 13.2 L, Hct 38.0 L, MCV 90.0, MCH 31.3 , MCHC 34.7, RDW 14.5, Plt Count 309, MPV 9.5, Gran % 79.5 H, Lymph % (Auto) 12.4 L, [place] % (Auto) 7.5 H, Eos % (Auto) 0.4 L, Baso % (Auto) 0.2, Gran # 9.51 H, Lymph # 1.5, [place] # 0.9 H, Eos # 0.1, Baso # 0.02 Vital Signs Temp Pulse Resp BP Pulse Ox 06/14/17 07:00 97.3 F L 88 20 101/60 97 06/13/17 23:34 20 06/13/17 21:05 95 H 17 146/66 100 06/13/17 20:14 100 H 17 118/74 98 06/13/17 18:46 112 H 18 133/84 98 06/13/17 15:49 97.7 F 125 H 20 142/83 100 pt was observed in the unit for the past three days. no agitation, no aggression , pleasant, cooperative, socially appropriate pt was stabilized on the following meds: wellbutrin was d/c due to potential side effect of psychosis Klonopin 1 mg 3 times a day prescribed by 1 month supply was given field in June 13 (two refills left) Olanzapine 10mg am and 20mg hs for psychosis Lexapro 20mg po daily for depression and anxiety Buspar 15mg bid for anxiety was continued pt tolerated meds well, no side effects observed or reported, AIMS 0, no EPS. family meeting took place today with pt's brother, pt's brother has no objection over d/c, willing to accept pt back home, was appreciative. d/c took longer than 30min. Over the course of this hospitalization pt was attending groups, pt also had medication management, had therapeutic milieu. Overall pt improved some residual signs of psychosis, no agitation, no aggression, pts insight improved as well and soon pt deemed to be ready for discharge. At the time of the discharge pt denied been depressed, denied thoughts of harming self or others, denied psychotic symptoms, and pt does not appeared to be psychotic, denied been anxious, was considered to pose no threat to self or others, will be following up at 's office, information about follow up appointment, time and address provided to the pt, it is patient responsibility to follow up with outpatient clinic, PMD as well as specialists (see SW note for more detailed information). In case pt will need to obtain results of studies pending at discharge pt was provided with contact information of Psychiatric Inpatient unit [phone] as well as Medical Record Department [phone]. Nicotine patch was offered pt was provided with prescriptions for all of medications (please see medication reconciliation form) Pt was educated about safety plan in case of worsening of symptoms or in case of suicidal or homicidal ideation call 911 or go to the nearest ER, also was educated to take meds as prescribed and stay away from drugs, pt verbalized understanding. - Diagnosis (1) Schizophrenia Status: Acute (2) Schizophrenia, residual, chronic, with acute exacerbation Status: Acute - Final Diagnosis (DSM 5) Condition upon Discharge: STABLE Disposition: HOME/ ROUTINE Follow-up Treatment Plan: At the time of the discharge pt denied been depressed, denied thoughts of harming self or others, denied psychotic symptoms, and pt does not appeared to be psychotic, denied been anxious, was considered to pose no threat to self or others, will be following up at 's office, information about follow up appointment, time and address provided to the pt, it is patient responsibility to follow up with outpatient clinic, PMD as well as specialists (see SW note for more detailed information). In case pt will need to obtain results of studies pending at discharge pt was provided with contact information of Psychiatric Inpatient unit [phone] as well as Medical Record Department [phone]. Nicotine patch was offered pt was provided with prescriptions for all of medications (please see medication reconciliation form) Pt was educated about safety plan in case of worsening of symptoms or in case of suicidal or homicidal ideation call 911 or go to the nearest ER, also was educated to take meds as prescribed and stay away from drugs, pt verbalized understanding. Prescriptions/Medication Reconciliation: busPIRone [Buspar] 15 mg PO BID #30 tab clonazePAM [Klonopin] 1 mg PO TID #45 tab Escitalopram [Lexapro] 20 mg PO DAILY #14 tab Levothyroxine [Synthroid] 175 mcg PO 0600 #7 tab Nicotine 21 mg/24 hr [Nicoderm Cq] 1 patch TD DAILY #14 patch OLANZapine [Zyprexa] 20 mg PO HS #14 tab OLANZapine [Zyprexa] 10 mg PO DAILY #14 tab Zolpidem [Ambien] 5 mg PO HS PRN #14 tab PRN Reason: Insomnia - Smoking Cessation Smoking Cessation Medication prescribed: Yes - Antipsychotic Medications Pt discharged on 2 or more routine antipsychotic medications: No
--- NOTE | 2017-06-18 02:08 | PN ---
DATE: 06/17/2017 SUBJECTIVE: The patient was examined on the bedside, looking comfortable. No nausea, vomiting or diarrhea. No hematuria or hematochezia. No swelling of the legs. The patient was seen early in the morning and looking comfortable. PHYSICAL EXAMINATION VITAL SIGNS: Temperature 97.3, pulse 63, blood pressure 123/78, respiratory rate 20. HEENT: Head: Normocephalic and atraumatic. Eyes: PERRLA. Extraocular muscles intact. Conjunctivae are clear. Nose is patent. Mucous membranes are moist. NECK: Supple. No carotid bruit, JVD or thyromegaly. CHEST: Bilaterally symmetrical. HEART: S1 and S2 positive. LUNGS: Clear to auscultation. ABDOMEN: Soft. Bowel sounds positive. No organomegaly. EXTREMITIES: No edema. No cyanosis. NEUROLOGIC: The patient is awake and alert. Moving all four extremities. No focal deficits. MEDICATIONS: Ambien, BuSpar, Geodon, Klonopin, Lexapro, Maalox, milk of magnesia, nicotine patch, Tylenol, Zyprexa. LABORATORY DATA: White blood cells 12, hemoglobin 13.2, hematocrit 38.0, platelets 309. Cholesterol 114, thyroxine 5.2. ASSESSMENT AND PLAN: Mr. Elinor Tucker is a 51-year-old male with multiple medical problems; leukocytosis, anemia, hypokalemia, hypercholesterolemia, proteinuria, ketonuria, hematuria, is in the psychiatric department for his depression, anxiety, schizophrenia, history of appendectomy. The patient is discharged home today. Medicine prescription was given. Followup with family care physician and psychiatrist as outpatient. Fawn Garcia MD
== END 2017-06-17 14:29 | disposition home or self-care (01) | DRG 885 ==
LOC: EDBD → ED 15:23 → ERH 22:10 → PSYC 22:36
PROVIDERS: ADMIT Psychiatry & Neurology Psychiatry; ATTEND Psychiatry & Neurology Psychiatry
DX: F20.5 Residual schizophrenia (principal); I10 Essential (primary) hypertension; F41.9 Anxiety disorder, unspecified; F32.9 Major depressive disorder, single episode, unspecified; E03.9 Hypothyroidism, unspecified; F17.210 Nicotine dependence, cigarettes, uncomplicated; E87.6 Hypokalemia; E87.8 Other disorders of electrolyte and fluid balance, not elsewhere classified; D64.9 Anemia, unspecified; D72.829 Elevated white blood cell count, unspecified